=== PATIENT | male | born 1950 | race Caucasian/White ===

== ENCOUNTER 2020-09-23 11:55 | Inpatient (IN) | payer MEDICARE, MEDICAID ==
[~2020-09-23] VITALS: Ht 182.9 cm; Wt 76.2 kg
[2020-09-23 12:21] VITALS: BP 148/93
--- NOTE | 2020-09-23 12:21 | NUR ---
ED Nurse Note: Patient from [facility] and brought in by [facility] due to generalized weakness and for PT evaluation. Patient denies any pain upon ED arrival. No apparent respiratory distress. Patient is AAO x4, follows commands.
--- NOTE | 2020-09-23 12:35 | Emergency Room Report ---
History of Present Illness General Chief Complaint: Generalized Weakness Source: Patient Present Illness HPI Disclaimer: Please note that this report is being documented using [employer] technology. This can lead to erroneous entry secondary to incorrect interpretation by the dictating instrument. HPI: 69-year-old male with a history of myasthenia gravis, Oscar Gomez syndrome presents from his facility for evaluation of weakness. Patient had been previously receiving IVIG and multiple medications and additionally transition to hospice care. There are some improvement in his strength is now able to lift his extremities but requires further physical therapy. Will require placement into a facility that can better suit his needs at rehab. Denies pain or discomfort. Denies chest pain, shortness of breath, cough, congestion, nausea, vomiting, diarrhea. Tested negative for COVID-19 last week. PMH: Oscar Gomez syndrome, myasthenia gravis PSH: Knee replacement Allergies: Sulfa Social Hx: Denied Allergies: Coded Allergies: SULFA (SULFONAMIDE ANTIBIOTICS) (Verified Allergy, Unknown, 09/23/20) COVID-19 Screening Contact w/high risk pt: No Experienced COVID-19 symptoms?: No COVID-19 Testing performed SOFTWARE PRODUCT SPECIALIST: No Review of Systems All Other Systems: negative except mentioned in HPI Physical Exam Vital Signs Date Time Temp Pulse Resp B/P (MAP) Pulse Ox O2 Delivery O2 Flow Rate FiO2 09/23/20 11:57 98.4 67 19 148/99 (115) 95 Room Air General: Awake and alert, no acute distress HEENT: NC/AT. EOMI. Cardiovascular: RRR. S1 and S2 normal. No murmur appreciated Resp: Normal work of breathing. No cough, wheezing or crackles appreciated Abdomen: Abdomen is soft, nondistended. Nontender Skin: Intact. No abrasions, laceration or rash over the exposed skin MSK: Normal tone and bulk. Moving all extremities. No obvious deformity. Strength is 3/5 at the hips and the lower extremity. Neuro: Awake and alert. Mentating appropriately. Intention tremor in upper and lower extremities. Medical Decision Making Diagnostic Impression: Primary Impression: Episode of generalized weakness ER Course 69-year-old male history of myasthenia gravis and Oscar Gomez syndrome presents for generalized weakness. Patient require placement and rehabilitation facility. EKG is nonischemic. Labs unremarkable. He will be admitted to his PMD, Dr. Quach for further care. Laboratory Tests Test 09/23/20 12:15 09/23/20 13:05 White Blood Count 7.0 K/UL (4.8-10.8) Red Blood Count 4.66 M/UL (4.70-6.10) L Hemoglobin 13.5 G/DL (14.2-18.0) L Hematocrit 41.9 % (42.0-52.0) L Mean Corpuscular Volume 90 FL (80-99) Mean Corpuscular Hemoglobin 29.0 PG (27.0-31.0) Mean Corpuscular Hemoglobin Concent 32.3 G/DL (32.0-36.0) Red Cell Distribution Width 14.7 % (11.6-14.8) Platelet Count 236 K/UL (150-450) Mean Platelet Volume 8.1 FL (6.5-10.1) Neutrophils (%) (Auto) 69.7 % (45.0-75.0) Lymphocytes (%) (Auto) 15.6 % (20.0-45.0) L Monocytes (%) (Auto) 8.9 % (1.0-10.0) Eosinophils (%) (Auto) 4.6 % (0.0-3.0) H Basophils (%) (Auto) 1.2 % (0.0-2.0) Sodium Level 139 MMOL/L (136-145) Potassium Level 4.3 MMOL/L (3.5-5.1) Chloride Level 106 MMOL/L (98-107) Carbon Dioxide Level 29 MMOL/L (21-32) Anion Gap 4 mmol/L (5-15) L Blood Urea Nitrogen 25 mg/dL (7-18) H Creatinine 1.1 MG/DL (0.55-1.30) Estimated Glomerular Filtration Rate > 60 mL/min (>60) Glucose Level 94 MG/DL (74-106) Calcium Level 9.7 MG/DL (8.5-10.1) Phosphorus Level 2.6 MG/DL (2.5-4.9) Magnesium Level 2.3 MG/DL (1.8-2.4) Total Bilirubin 0.2 MG/DL (0.2-1.0) Aspartate Amino Transferase (AST) 18 U/L (15-37) Alanine Aminotransferase (ALT) 22 U/L (12-78) Alkaline Phosphatase 65 U/L (46-116) Total Creatine Kinase 35 U/L (26-308) Troponin I 0.007 ng/mL (0.000-0.056) Pro-B-Type Natriuretic Peptide 21 pg/mL (0-125) Total Protein 6.6 G/DL (6.4-8.2) Albumin 3.3 G/DL (3.4-5.0) L Globulin 3.3 g/dL Albumin/Globulin Ratio 1.0 (1.0-2.7) Urine Color Yellow Urine Appearance Clear Urine pH 7 (4.5-8.0) Urine Specific [place] 1.010 (1.005-1.035) Urine Protein Negative (NEGATIVE) Urine Glucose (UA) Negative (NEGATIVE) Urine Ketones Negative (NEGATIVE) Urine Blood Negative (NEGATIVE) Urine Nitrite Negative (NEGATIVE) Urine Bilirubin Negative (NEGATIVE) Urine Urobilinogen Normal MG/DL (0.0-1.0) Urine Leukocyte Esterase Negative (NEGATIVE) Urine Opiates Screen Negative (NEGATIVE) Urine Barbiturates Screen Positive (NEGATIVE) H Phencyclidine (PCP) Screen Negative (NEGATIVE) Urine Amphetamines Screen Negative (NEGATIVE) Urine Benzodiazepines Screen Negative (NEGATIVE) Urine Cocaine Screen Negative (NEGATIVE) Urine Marijuana (THC) Screen Negative (NEGATIVE) EKG Diagnostic Results Troponin ordered: Yes When was troponin ordered?: Sep 23, 2020 EKG Time: 12:26 Rate: normal Rhythm: NSR ST Segments: no acute changes Other Impression Sinus rhythm, normal axis, normal intervals, QTC 401 ms Rhythm Strip Diag. Results Rhythm Strip Time: 12:26 EP Interpretation: yes Rate: 60s Rhythm: NSR, no PVC's, no ectopy Chest X-Ray Diagnostic Results Chest X-Ray Diagnostic Results : Chest X-Ray Ordered: Yes # of Views/Limited/Complete: 1 View Indication: Other - Weakness EP Interpretation: Yes Interpretation: no consolidation, no effusion, no pneumothorax, no acute cardiopulmonary disease Impression: No acute disease Electronically Signed by: Electronically signed by Dr. Marlo Kirby MD Last Vital Signs Date Time Temp Pulse Resp B/P (MAP) Pulse Ox O2 Delivery O2 Flow Rate FiO2 09/23/20 12:21 67 19 Room Air 09/23/20 11:57 98.4 148/99 (115) 95 Disposition: ADMITTED INPATIENT Condition: Stable Marlo Kirby MD Sep 23, 2020 12:35
--- NOTE | 2020-09-23 12:35 | NUR ---
ED Nurse Note: Patient was provided with warm blankets for comfort.
[2020-09-23 12:58] LABS: ANION GAP 4 mmol/L (5-15); BLOOD UREA NITROGEN 25 mg/dL (7-18); CALCIUM 9.7 MG/DL (8.5-10.1); CARBON DIOXIDE 29 MMOL/L (21-32); CHLORIDE 106 MMOL/L (98-107); CREATININE 1.1 MG/DL (0.55-1.30); POTASSIUM 4.3 MMOL/L (3.5-5.1); SODIUM 139 MMOL/L (136-145)
--- NOTE | 2020-09-23 13:00 | NUR ---
ED Nurse Note: Patient remains calm and cooperative. Speaks in full sentences with no respiratory distress. Collected urine then sent.
[2020-09-23 13:09] LABS: ALANINE AMINOTRANSFERASE 22 U/L (12-78); ALBUMIN 3.3 G/DL (3.4-5.0); ALKALINE PHOSPHATASE 65 U/L (46-116); ASPARTATE AMINO TRANSFERASE 18 U/L (15-37); BILIRUBIN,TOTAL 0.2 MG/DL (0.2-1.0); CREATINE KINASE 35 U/L (26-308); PHOSPHORUS 2.6 MG/DL (2.5-4.9)
[2020-09-23 13:16] LABS: BASOPHILS % (AUTO) 1.2 % (0.0-2.0); EOSINOPHILS % (AUTO) 4.6 % (0.0-3.0); HEMATOCRIT 41.9 % (42.0-52.0); HEMOGLOBIN 13.5 G/DL (14.2-18.0); LYMPHOCYTES % (AUTO) 15.6 % (20.0-45.0); MEAN CORPUSCULAR VOLUME 90 FL (80-99); MONOCYTES % (AUTO) 8.9 % (1.0-10.0); NEUTROPHILS % (AUTO) 69.7 % (45.0-75.0); PLATELET COUNT 236 K/UL (150-450); RED BLOOD COUNT 4.66 M/UL (4.70-6.10); RED CELL DISTRIBUTION WIDTH 14.7 % (11.6-14.8)
[2020-09-23 13:50] LABS: APPEARANCE,URINE CLEAR; BILIRUBIN, URINE NEGATIVE (NEGATIVE); COLOR,URINE YELLOW; GLUCOSE, URINE (UA) NEGATIVE (NEGATIVE); KETONES,URINE NEGATIVE (NEGATIVE); LEUKOCYTE ESTERASE ,URINE NEGATIVE (NEGATIVE); NITRITE,URINE NEGATIVE (NEGATIVE); PH,URINE 7 (4.5-8.0); PROTEIN,URINE NEGATIVE (NEGATIVE); UROBILINOGEN,URINE NORMAL MG/DL (0.0-1.0)
[2020-09-23 14:23] VITALS: BP 141/92
--- NOTE | 2020-09-23 14:30 | NUR ---
ED Nurse Note: Report given to RN of Med surg unit.
[2020-09-23] MEDS ORDERED: MILK OF MA400 MG/51 ORAL (14:31)
[2020-09-23] MEDS ORDERED: IBUPROFEN600 M1 ORAL (14:31)
[2020-09-23] MEDS ORDERED: HYDRALAZINE HCL50 MG ORAL (14:31)
[2020-09-23] MEDS ORDERED: IPRATROPIU0.2 MG/1 M HHN (14:31)
[2020-09-23] MEDS ORDERED: MYSOLINE250 M1 PO (14:39)
[2020-09-23] MEDS ORDERED: MULTIVITAMINS1 EA13 ORAL (14:39)
[2020-09-23] MEDS ORDERED: TRAZODONE HCL150 MG ORAL (14:39)
[2020-09-23] MEDS ORDERED: HYDRALAZINE HCL10 MG ORAL (14:39)
[2020-09-23] MEDS ORDERED: HYDRALAZINE HCL25 M1 ORAL (14:39)
[2020-09-23] MEDS ORDERED: PYRIDOSTIGMINE180 MG PO (14:39)
[2020-09-23] MEDS ORDERED: OYSTER SHELL 51 EAC2 PO (14:39)
[2020-09-23] MEDS ORDERED: VALPROIC ACID250 MG PO (14:39)
[2020-09-23] MEDS ORDERED: MYCOPHENOLATE500 MG PO (14:39)
[2020-09-23] MEDS ORDERED: CLONAZEPAM0.5 M1 PO (14:39)
[2020-09-23] MEDS ORDERED: GABAPENTIN600 MG ORAL (14:39)
--- NOTE | 2020-09-23 14:45 | NUR ---
NURSE NOTES: Patient arrived on unit. Stable. Denies pain or SOB. Patient oriented to room, call light, and unit. Patient instructed to use call light for assistance, verbalized understanding. Skin is c/d/i. Weakness noted in all 4 extremities, patient verbalized that he is unable to walk or stand. All safety measures provided. Patient is in bed in locked and lowest position with call light within reach. All needs met at this time. Will continue to monitor.
[2020-09-23] MEDS ORDERED: PYRIDOSTIGMINE60 MG ORAL (15:09)
[2020-09-23] MEDS ORDERED: DULCOLAX10 MG RC (15:11)
[2020-09-23] MEDS ORDERED: VITAMIN C500 M1 ORAL (15:24)
[2020-09-23] MEDS ORDERED: MORPHINE S10 MG/5 ML ORAL ×2 (15:24)
[2020-09-23] MEDS ORDERED: ACETAMINOPHEN325 M1 ORAL (15:24)
[2020-09-23] MEDS ORDERED: CELEXA10 MG ORAL (15:24)
[2020-09-23] MEDS ORDERED: FLEET ENEMA133 M1 RC (15:24)
[2020-09-23] MEDS ORDERED: SENNA8.6 M2 PO (15:24)
[2020-09-23] MEDS ORDERED: HydrALAZINE 10mg Tab ORAL PRN (15:30)
[2020-09-23] MEDS ORDERED: Ipratropium 0.02% Inh Soln 2.5ml UD HHN PRN (15:30)
[2020-09-23] MEDS ORDERED: HydrALAZINE 25mg tab ORAL PRN (15:30)
[2020-09-23] MEDS ORDERED: Milk of Magnesia 30ml Ud ORAL PRN (15:30)
[2020-09-23] MEDS ORDERED: Fleet's Enema 133ml RECTAL PRN (15:30)
[2020-09-23] MEDS ORDERED: Morphine Sulfate 10mg/5ml Oral Soln ud ORAL PRN ×2 (15:30)
[2020-09-23 16:00] VITALS: BP 140/89
--- NOTE | 2020-09-23 18:09 | History and Physical ---
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 .He presents to the Hospital with increasing muscle stiffness, gait difficulty and admission is required for medical optimization. Allergies: Coded Allergies: SULFA (SULFONAMIDE ANTIBIOTICS) (Verified Allergy, Unknown, 09/23/20) COVID-19 Screening Contact w/high risk pt: No Experienced COVID-19 symptoms?: No Medication History Scheduled Ascorbic Acid* (Vitamin C*), 500 MG ORAL DAILY, (Reported) Calcium Carbonate/Vitamin D3 (Oyster Shell 500-Vit D3 200 Pk), 1 EACH PO TID, (Reported) Citalopram Hydrobromide (Celexa), 10 MG ORAL DAILY, (Reported) Clonazepam (Clonazepam), 0.5 MG PO BID, (Reported) Gabapentin* (Gabapentin*), 600 MG ORAL BID, (Reported) Hydralazine Hcl* (Hydralazine Hcl*), 50 MG ORAL EVERY 8 HOURS, (Reported) Multivitamin with Minerals (Multivitamins with Minerals), 1 TAB ORAL DAILY, (Reported) Mycophenolate Mofetil (Mycophenolate Mofetil), 500 MG PO BID, (Reported) Primidone (Mysoline), 250 MG PO DAILY, (Reported) Pyridostigmine Ralph* (Mestinon*), 60 MG ORAL FOUR TIMES A DAY, (Reported) Sennosides (Senna), 8.6 MG PO Q12HR, (Reported) Trazodone* (Trazodone*), 100 MG ORAL BEDTIME, (Reported) Valproic Acid (Valproic Acid), 500 MG PO DAILY, (Reported) Scheduled PRN Acetaminophen* (Acetaminophen 325MG Tablet*), 650 MG ORAL Q4H PRN for Mild Pain (Pain Scale 1-3), (Reported) Acetaminophen* (Acetaminophen 325MG Tablet*), 650 MG ORAL Q4H PRN for TEMP >101, (Reported) Bisacodyl (Dulcolax), 10 MG RC DAILY PRN for Constipation, (Reported) Hydralazine Hcl* (Hydralazine Hcl*), 10 MG ORAL EVERY 6 HOURS PRN for SBP >150, (Reported) Hydralazine Hcl* (Hydralazine Hcl*), 25 MG ORAL Q6HR PRN for SBP >160, (Reported) Ibuprofen* (Motrin*), 800 MG ORAL Q8H PRN for Moderate Pain (Pain Scale 4-6), (Reported) Ipratropium Ralph 0.5MG/2.5ML (Ipratropium Ralph 0.5MG/2.5ML), 0.5 MG HHN Q4HR PRN for Shortness of Breath, (Reported) Magnesium Hydroxide* (Milk Of Magnesia*), 30 ML ORAL DAILY PRN for Constipation, (Reported) Morphine 10mg/5ml Oral Soln* (Morphine 10mg/5ml Oral Soln*), 5 MG ORAL EVERY 2 HOURS PRN for Severe Pain (Pain Scale 7-10), (Reported) Morphine 10mg/5ml Oral Soln* (Morphine 10mg/5ml Oral Soln*), 5 MG ORAL Q4HR PRN for Moderate Pain (Pain Scale 4-6), (Reported) Na Phos,M-B/Na Phos,Di-Ba (Fleet Enema), 133 ML RC DAILY PRN for Constipation, (Reported) Patient History Healthcare decision maker Resuscitation status Advanced Directive on File Review of Systems Constitutional: Reports: see HPI Musculoskeletal: Reports: muscle pain, muscle stiffness Psychiatric: Reports: anxiety, depressed feelings, emotional problems Neurological: Denies: focal weakness Physical Exam General Appearance: WD/WN Lines, tubes and drains: peripheral Neck: non-tender Respiratory/Chest: lungs clear Cardiovascular/Chest: normal rate Abdomen: non tender Extremities: normal range of motion Neurologic: climatologist II-XII grossly normal Last 24 Hour Vital Signs Date Time Temp Pulse Resp B/P (MAP) Pulse Ox O2 Delivery O2 Flow Rate FiO2 09/23/20 14:41 98.2 79 20 141/92 97 Room Air 09/23/20 14:23 98.2 79 20 141/92 97 Room Air 09/23/20 12:21 98.4 87 16 148/93 100 Room Air 09/23/20 12:21 67 19 Room Air 09/23/20 11:57 98.4 67 19 148/99 (115) 95 Room Air Laboratory Tests Test 09/23/20 12:15 09/23/20 13:05 White Blood Count 7.0 K/UL (4.8-10.8) Red Blood Count 4.66 M/UL (4.70-6.10) L Hemoglobin 13.5 G/DL (14.2-18.0) L Hematocrit 41.9 % (42.0-52.0) L Mean Corpuscular Volume 90 FL (80-99) Mean Corpuscular Hemoglobin 29.0 PG (27.0-31.0) Mean Corpuscular Hemoglobin Concent 32.3 G/DL (32.0-36.0) Red Cell Distribution Width 14.7 % (11.6-14.8) Platelet Count 236 K/UL (150-450) Mean Platelet Volume 8.1 FL (6.5-10.1) Neutrophils (%) (Auto) 69.7 % (45.0-75.0) Lymphocytes (%) (Auto) 15.6 % (20.0-45.0) L Monocytes (%) (Auto) 8.9 % (1.0-10.0) Eosinophils (%) (Auto) 4.6 % (0.0-3.0) H Basophils (%) (Auto) 1.2 % (0.0-2.0) Sodium Level 139 MMOL/L (136-145) Potassium Level 4.3 MMOL/L (3.5-5.1) Chloride Level 106 MMOL/L (98-107) Carbon Dioxide Level 29 MMOL/L (21-32) Anion Gap 4 mmol/L (5-15) L Blood Urea Nitrogen 25 mg/dL (7-18) H Creatinine 1.1 MG/DL (0.55-1.30) Estimat Glomerular Filtration Rate > 60 mL/min (>60) Glucose Level 94 MG/DL (74-106) Calcium Level 9.7 MG/DL (8.5-10.1) Phosphorus Level 2.6 MG/DL (2.5-4.9) Magnesium Level 2.3 MG/DL (1.8-2.4) Total Bilirubin 0.2 MG/DL (0.2-1.0) Aspartate Amino Transf (AST/SGOT) 18 U/L (15-37) Alanine Aminotransferase (ALT/SGPT) 22 U/L (12-78) Alkaline Phosphatase 65 U/L (46-116) Total Creatine Kinase 35 U/L (26-308) Troponin I 0.007 ng/mL (0.000-0.056) Pro-B-Type Natriuretic Peptide 21 pg/mL (0-125) Total Protein 6.6 G/DL (6.4-8.2) Albumin 3.3 G/DL (3.4-5.0) L Globulin 3.3 g/dL Albumin/Globulin Ratio 1.0 (1.0-2.7) Urine Color Yellow Urine Appearance Clear Urine pH 7 (4.5-8.0) Urine Specific [place] 1.010 (1.005-1.035) Urine Protein Negative (NEGATIVE) Urine Glucose (UA) Negative (NEGATIVE) Urine Ketones Negative (NEGATIVE) Urine Blood Negative (NEGATIVE) Urine Nitrite Negative (NEGATIVE) Urine Bilirubin Negative (NEGATIVE) Urine Urobilinogen Normal MG/DL (0.0-1.0) Urine Leukocyte Esterase Negative (NEGATIVE) Urine Opiates Screen Negative (NEGATIVE) Urine Barbiturates Screen Positive (NEGATIVE) H Phencyclidine (PCP) Screen Negative (NEGATIVE) Urine Amphetamines Screen Negative (NEGATIVE) Urine Benzodiazepines Screen Negative (NEGATIVE) Urine Cocaine Screen Negative (NEGATIVE) Urine Marijuana (THC) Screen Negative (NEGATIVE) Microbiology Date/Time Source Procedure Growth Status 09/23/20 13:00 Rectum Received Height (Feet): 6 Height (Inches): 0.00 Weight (Pounds): 168 Medications Current Medications Medications (Trade) Dose Ordered Sig/Brad Route PRN Reason Start Time Stop Time Status Last Admin Dose Admin Acetaminophen (Tylenol) 650 mg Q4H PRN ORAL Mild Pain (Pain Scale 1-3) 09/23/20 15:30 10/23/20 15:29 Acetaminophen (Tylenol) 650 mg Q4H PRN ORAL TEMP >101 09/23/20 15:30 10/23/20 15:29 Ascorbic Acid (Vitamin C) 500 mg DAILY ORAL 09/24/20 09:00 10/24/20 08:59 Bisacodyl (Dulcolax) 10 mg DAILYPRN PRN RECTAL Constipation 09/23/20 15:30 12/22/20 15:29 Citalopram Hydrobromide (CeleXA) 10 mg DAILY ORAL 09/24/20 09:00 10/24/20 08:59 Clonazepam (KlonoPIN) 0.5 mg BID ORAL 09/23/20 18:00 09/30/20 17:59 Dextrose (Dextrose 50%) 25 ml Q30M PRN IV Hypoglycemia 09/23/20 15:45 12/22/20 15:44 Dextrose (Dextrose 50%) 50 ml Q30M PRN IV Hypoglycemia 09/23/20 15:45 12/22/20 15:44 Gabapentin (Neurontin) 600 mg BID ORAL 09/23/20 18:00 10/23/20 17:59 Hydralazine HCl (Apresoline) 10 mg Q6H PRN ORAL SBP >150 09/23/20 15:30 12/22/20 15:29 Hydralazine HCl (Apresoline) 25 mg Q6H PRN ORAL SBP >160 09/23/20 15:30 12/22/20 15:29 Hydralazine HCl (Apresoline) 50 mg EVERY 8 HOURS ORAL 09/23/20 22:00 12/22/20 21:59 Ibuprofen (Motrin) 800 mg Q8H PRN ORAL Moderate Pain (Pain Scale 4-6) 09/23/20 15:30 10/23/20 15:29 Ipratropium Ralph (Atrovent) 500 mcg Q4H PRN HHN Shortness of Breath 09/23/20 15:30 09/28/20 15:29 Magnesium Hydroxide (Mom) 30 ml DAILYPRN PRN ORAL Constipation 09/23/20 15:30 10/23/20 15:29 Morphine Sulfate (Morphine 10mg/ 5ml Oral Soln) 5 mg Q2H PRN ORAL Severe Pain (Pain Scale 7-10) 09/23/20 15:30 09/30/20 15:29 Morphine Sulfate (Morphine 10mg/ 5ml Oral Soln) 5 mg Q4H PRN ORAL Moderate Pain (Pain Scale 4-6) 09/23/20 15:30 09/30/20 15:29 Multivitamins Therapeutic (Therapeutic Multivitamin) 1 ea DAILY ORAL 09/24/20 09:00 10/24/20 08:59 Mycophenolate Mofetil (Cellcept) 500 mg BID ORAL 09/23/20 18:00 12/22/20 17:59 Primidone (Mysoline) 250 mg DAILY ORAL 09/24/20 09:00 10/24/20 08:59 Pyridostigmine Ralph (Mestinon) 60 mg FOUR TIMES A DAY ORAL 09/23/20 18:00 12/22/20 17:59 Sennosides (Senokot) 8.6 mg Q12HR ORAL 09/23/20 21:00 10/23/20 20:59 Sodium Chloride 1,000 ml @ 75 mls/hr Q24H IV 09/23/20 18:00 10/23/20 17:59 Sodium Phosphate (Fleet's Sodium Phosl Enema) 133 ml DAILYPRN PRN RECTAL Constipation 09/23/20 15:30 10/23/20 15:29 Trazodone HCl (Desyrel) 100 mg BEDTIME ORAL 09/23/20 21:00 10/23/20 20:59 Valproic Acid (Depakene) 500 mg DAILY ORAL 09/24/20 09:00 10/24/20 08:59 Assessment/Plan Status: stable Assessment/Plan: 69 y/o male with increasing weakness and muscle stiffness admitted to the hospital for medical optimization and therapy. # History of Myasthenia Gravis and Lamber Eaton Syndrome Continue chronic Benzodiazepines and cellcep therapy PT OT ST evaluation for baseline and potential for recovery Patient is hoping to be able to return to SNF and engage in therapies to improve his baseline Suportive care # History of T2 DM Monitor and HbA1c will be ordered. He has not been using insulin recently.. # History of Asthma Monitor and PRN HHN as needed. # History of Major Depression Monitor and will discuss the benefit of further therapy. He used to be on SSRI in the past. DVT ppx [facility] GI PPI FULL CODE Aaron Quach MD Sep 23, 2020 18:09
[2020-09-23] MEDS: Pyridostigmine 60mg tab ORAL SCH ×2 (18:22→21:25)
[2020-09-23] MEDS: clonazePAM 0.5mg tab ORAL SCH (18:23)
[2020-09-23] MEDS: Mycophenolate 250mg cap ORAL SCH (18:23)
[2020-09-23] MEDS: Enoxaparin 40mg Inj SUBQ SCH (18:26)
--- NOTE | 2020-09-23 19:30 | NUR ---
NURSE HAND-OFF: Important Events on Shift: admission Patient Status: stable Diet: regular Pending Orders: n/a Pending Results/Labs:n/a Pending MD notification:n/a Latest Vital Signs: Temperature 97.4 , Pulse 66 , B/P 140 /89 , Respiratory Rate 20 , O2 SAT 93 , Room Air, O2 Flow Rate . Vital Sign Comment: n/a Latest Jackson Fall Score: 20 Fall Risk: Low Risk Safety Measures: Call light Within Reach, Bed Alarm , Side Rails Side Rails x2, Bed position Low and Locked. Fall Precautions: Patient Fall Education Report given to Edgardo CASTRO.
--- NOTE | 2020-09-23 19:30 | NUR ---
NURSE NOTES: received pt and report from MATTHEW Sandoval. pt alert and oriented x 4 with no acute s/s of distress and no co pain at the moment. IV site clean dry and intact and running fluids as ordered. plan of care discussed.
[2020-09-23 20:00] VITALS: BP 158/99
[2020-09-23] MEDS: TraZODone 100mg tab ORAL SCH (21:26)
[2020-09-23] MEDS: HydrALAZINE 50mg tab ORAL SCH (21:26)
[2020-09-23] MEDS: Sennosides 8.6mg tab ORAL SCH (21:26)
--- NOTE | 2020-09-23 23:00 | NUR ---
NURSE NOTES: pt had large soft bowel movement that was light brown in color. pt able to move himself left and right in order to aid in cleaning. Pt incontinent of urine also, condom cath installed. Pt with no co pain at the moment and with no s/s of acute distress.
[2020-09-24] VITALS: BP 132/78
--- NOTE | 2020-09-24 00:20 | NUR ---
NURSE NOTES: pts vital signs stable, no co pain, no acute distress. condom cath fell off, pad soaked. pt cleaned and new condom cath installed.
[2020-09-24 04:00] VITALS: BP 141/89
--- NOTE | 2020-09-24 04:57 | NUR ---
NURSE NOTES: pt sleeping upon room entry. pt vital signs stable, he has no co pain, and has no s/s of acute distress. condom cath still in place. bedding and chucks clean and dry.
[2020-09-24] MEDS: HydrALAZINE 50mg tab ORAL SCH ×3 (06:09→21:17)
[2020-09-24 06:42] LABS: BASOPHILS % (AUTO) 1.2 % (0.0-2.0); EOSINOPHILS % (AUTO) 6.6 % (0.0-3.0); HEMATOCRIT 41.8 % (42.0-52.0); HEMOGLOBIN 13.4 G/DL (14.2-18.0); LYMPHOCYTES % (AUTO) 21.7 % (20.0-45.0); MEAN CORPUSCULAR VOLUME 92 FL (80-99); MONOCYTES % (AUTO) 7.3 % (1.0-10.0); NEUTROPHILS % (AUTO) 63.2 % (45.0-75.0); PLATELET COUNT 214 K/UL (150-450); RED BLOOD COUNT 4.52 M/UL (4.70-6.10); RED CELL DISTRIBUTION WIDTH 14.4 % (11.6-14.8); WHITE BLOOD COUNT 5.4 K/UL (4.8-10.8)
[2020-09-24 07:35] LABS: ANION GAP 4 mmol/L (5-15); BLOOD UREA NITROGEN 20 mg/dL (7-18); CALCIUM 9.4 MG/DL (8.5-10.1); CARBON DIOXIDE 28 MMOL/L (21-32); CHLORIDE 106 MMOL/L (98-107); CHOLESTEROL 249 MG/DL (< 200); CREATININE 1.1 MG/DL (0.55-1.30); HDL CHOLESTEROL 66 MG/DL (40-60); POTASSIUM 4.2 MMOL/L (3.5-5.1); SODIUM 138 MMOL/L (136-145); TRIGLYCERIDES 72 MG/DL (30-150)
--- NOTE | 2020-09-24 07:38 | NUR ---
NURSE HAND-OFF: Important Events on Shift:bowel movement, incontinence management Patient Status: stable Diet: regular Pending Orders: NA Pending Results/Labs:NA Pending MD notification:NA Latest Vital Signs: Temperature 97.4 , Pulse 62 , B/P 141 /89 , Respiratory Rate 15 , O2 SAT 95 , Room Air, O2 Flow Rate . Vital Sign Comment: stable through the shift Latest Jackson Fall Score: 20 Fall Risk: Low Risk Safety Measures: Call light Within Reach, Bed Alarm Zone 1, Side Rails Side Rails x2, Bed position Low and Locked. Fall Precautions: Patient Fall Education Report given to Yamilet Bernal RN.
--- NOTE | 2020-09-24 07:54 | NUR ---
NURSE NOTES: Received report from MATTHEW Reynoso. Rounding done with outgoing nurse. Pt a/o x 4 , in bed. NO SOB noted. Denies any pain at this time. Prepared meal for him. Rt AC IV is in placed. 1/2NS is running @75mlhr. condom catheter is in placed. Bed in lowest position, call light within reach. Will continue to monitor.
[2020-09-24 08:00] VITALS: BP 143/98
[2020-09-24] MEDS: clonazePAM 0.5mg tab ORAL SCH ×2 (08:58→17:37)
[2020-09-24] MEDS: Citalopram Hydrobromide 10mg Tab ORAL SCH (08:58)
[2020-09-24] MEDS: Sennosides 8.6mg tab ORAL SCH ×2 (08:58→21:17)
[2020-09-24] MEDS: Multivitamin w/Minerals tab ORAL SCH (08:58)
[2020-09-24] MEDS: Ascorbic Acid 500mg tab ORAL SCH (08:58)
[2020-09-24] MEDS: Pyridostigmine 60mg tab ORAL SCH ×4 (08:59→21:18)
[2020-09-24] MEDS: Mycophenolate 250mg cap ORAL SCH ×2 (08:59→17:38)
[2020-09-24] MEDS: Enoxaparin 40mg Inj SUBQ SCH (09:01)
[2020-09-24 12:00] VITALS: BP 138/91
--- NOTE | 2020-09-24 14:43 | General Progress Note ---
Subjective Date patient seen: Sep 24, 2020 ROS Limited/Unobtainable: No Allergies: Coded Allergies: SULFA (SULFONAMIDE ANTIBIOTICS) (Verified Allergy, Unknown, 09/23/20) All Systems: reviewed and negative except above Subjective Patient had an ok night and slept. His muscle spasm are stable with benzodiazepine. Objective Last 24 Hour Vital Signs Date Time Temp Pulse Resp B/P (MAP) Pulse Ox O2 Delivery O2 Flow Rate FiO2 09/24/20 13:54 138/91 09/24/20 12:00 98.0 65 20 138/91 (107) 93 09/24/20 09:00 Room Air 09/24/20 08:00 97.5 69 15 143/98 (113) 96 09/24/20 06:09 141/89 09/24/20 04:00 97.4 62 15 141/89 (106) 95 09/24/20 00:00 97.7 61 19 132/78 (96) 94 09/23/20 21:26 158/99 09/23/20 21:00 Room Air 09/23/20 20:00 97.9 67 18 158/99 (118) 94 09/23/20 16:00 97.4 66 20 140/89 (106) 93 Intake and Output 09/23/20 09/24/20 19:00 07:00 Intake Total 500 ml 1065 ml Output Total 150 ml 600 ml Balance 350 ml 465 ml Intake Oral 240 ml IV Total 500 ml 825 ml Output Urine Total 150 ml 600 ml Laboratory Tests 09/24/20 05:25: White Blood Count 5.4, Red Blood Count 4.52L, Hemoglobin 13.4L, Hematocrit 41.8L , Mean Corpuscular Volume 92, Mean Corpuscular Hemoglobin 29.6, Mean Corpuscular Hemoglobin Concent 32.0, Red Cell Distribution Width 14.4, Platelet Count 214, Mean Platelet Volume 7.7, Neutrophils (%) (Auto) 63.2, Lymphocytes (%) (Auto) 21.7, Monocytes (%) (Auto) 7.3, Eosinophils (%) (Auto) 6.6H, Basophils (%) (Auto) 1.2, Sodium Level 138, Potassium Level 4.2, Chloride Level 106, Carbon Dioxide Level 28, Anion Gap 4L, Blood Urea Nitrogen 20H, Creatinine 1.1, Estimat Glomerular Filtration Rate > 60, Glucose Level 87, Calcium Level 9.4, Triglycerides Level 72, Cholesterol Level 249H, LDL Cholesterol 158H, HDL Cholesterol 66H, Cholesterol/HDL Ratio 3.8, Thyroid Stimulating Hormone (TSH) 2.367 Height (Feet): 6 Height (Inches): 0.00 Weight (Pounds): 168 General Appearance: WD/WN EENT: PERRL/EOMI Neck: non-tender Respiratory/Chest: lungs clear Abdomen: non tender Neurologic: evaluation engineer II-XII grossly normal Assessment/Plan Status: stable Assessment/Plan: 69 y/o male with increasing weakness and muscle stiffness admitted to the hospital for medical optimization and therapy. # History of Myasthenia Gravis and Lamber Eaton Syndrome Continue chronic Benzodiazepines and cellcep therapy PT OT ST evaluation for baseline and potential for recovery Patient is hoping to be able to return to SNF and engage in therapies to improve his baseline Supportive care # History of T2 DM Monitor and HbA1c will be ordered. He has not been using insulin recently.. # History of Asthma Monitor and PRN HHN as needed. # History of Major Depression Monitor and will discuss the benefit of further therapy. He used to be on SSRI in the past. DVT ppx [facility] GI PPI FULL CODE Aaron Quach MD Sep 24, 2020 14:43
--- NOTE | 2020-09-24 15:30 | NUR ---
P.T Note: P.T evaluation completed and tx initiated. Please refer to P.T evaluation for full report.
[2020-09-24] MEDS ORDERED: MORPHINE S100 MG/5 M ORAL ×2 (15:55)
[2020-09-24 16:00] VITALS: BP 131/92
--- NOTE | 2020-09-24 16:28 | Cardiology Report ---
APPROVED REPORT EKG Measurement Heart [id number] <Conclusion> Sinus rhythm with 1st degree AV block Otherwise normal ECG
--- NOTE | 2020-09-24 17:09 | NUR ---
*-*DISCHARGE PLANNING*-* PATIENT HAS BEEN ACCEPTED BACK TO: [facility] P: [phone] [facility] ROOM# 46.B
--- NOTE | 2020-09-24 17:21 | NUR ---
Speech Pathology Note (Speech and Language) Mr. Rust is a 69 year old male presents MG, Lamber Eaton Syndrome s.p IVIG admitted from [facility] facility for weakness and muscle spasm and gait difficulty. Evaluation: Mr. Hein presents with normal speech, language and voice function at this time. He denies dysphagia, odynophagia or choking on food or liquid. I discussed with Mr. Rust about speech services. We both agree that he does not need speech service at this time. I will sing off from speech service at this time. Alice Ray
--- NOTE | 2020-09-24 19:00 | NUR ---
NURSE HAND-OFF: Important Events on Shift: Patient Status: stable Diet: regular Pending Orders: n/a Pending Results/Labs:n/a Pending MD notification:n/a Latest Vital Signs: Temperature 98.1 , Pulse 76 , B/P 131 /92 , Respiratory Rate 18 , O2 SAT 95 , Room Air, O2 Flow Rate . Vital Sign Comment: stable Latest Jackson Fall Score: 20 Fall Risk: Low Risk Safety Measures: Call light Within Reach, Bed Alarm Zone 1, Side Rails Side Rails x2, Bed position Low and Locked. Fall Precautions: Patient Fall Education Report given to MATTHEW Reynoso.
--- NOTE | 2020-09-24 19:10 | Diagnostic Imaging Report ---
EXAM: XR Chest, 1 View CLINICAL HISTORY: WEAK TECHNIQUE: Frontal view of the chest. COMPARISON: No relevant prior studies available. FINDINGS: Lungs: No acute cardiopulmonary disease. Mild hyperinflation. Right base subsegmental atelectasis. Recommend evaluation to determine if this patient would meet criteria for inclusion in an annual low dose CT chest lung cancer screening protocol. Pleural space: Unremarkable. No pneumothorax. Heart: Unremarkable. No cardiomegaly. Mediastinum: Unremarkable. Bones/joints: [place] left cervicothoracic spine curvature. IMPRESSION: 1. No acute cardiopulmonary disease. 2. Mild hyperinflation. 3. Right base subsegmental atelectasis. 4. Recommend evaluation to determine if this patient would meet criteria for inclusion in an annual low dose CT chest lung cancer screening protocol.
--- NOTE | 2020-09-24 19:25 | NUR ---
NURSE NOTES: received pt and report from MATTHEW Bernal. pt alert and oriented x 4 with no acute s/s of distress and no co pain. IV site clean dry and intact and running fluids as ordered. Plan of care discussed.
[2020-09-24 20:00] VITALS: BP 130/81
[2020-09-24] MEDS: TraZODone 100mg tab ORAL SCH (21:17)
[2020-09-25] VITALS: BP 133/83
--- NOTE | 2020-09-25 00:32 | NUR ---
NURSE NOTES: pt currently asleep. vital signs stable at midnight. He is in no acute distress. no co pain.
[2020-09-25 03:58] VITALS: BP 149/96
--- NOTE | 2020-09-25 04:45 | NUR ---
NURSE NOTES: pt had large bowel movement which was hard and brown. pt able to turn on his side to allow for cleaning. gown changed as well. Pt condom cath still in place. calazime and optifoam placed on pts sacrum for prophylactic purpose although pt is able to turn himself in bed and does so multiple times a night. No skin issues upon assessment. pt vitals stable through the night. he is in no acute distress and he hasnt complained of pain.
[2020-09-25] MEDS: HydrALAZINE 50mg tab ORAL SCH ×3 (05:07→21:18)
[2020-09-25 06:09] LABS: BASOPHILS % (AUTO) 1.3 % (0.0-2.0); EOSINOPHILS % (AUTO) 6.5 % (0.0-3.0); HEMATOCRIT 42.3 % (42.0-52.0); HEMOGLOBIN 13.4 G/DL (14.2-18.0); LYMPHOCYTES % (AUTO) 15.7 % (20.0-45.0); MEAN CORPUSCULAR VOLUME 93 FL (80-99); MONOCYTES % (AUTO) 9.1 % (1.0-10.0); NEUTROPHILS % (AUTO) 67.4 % (45.0-75.0); PLATELET COUNT 224 K/UL (150-450); RED BLOOD COUNT 4.56 M/UL (4.70-6.10); RED CELL DISTRIBUTION WIDTH 14.5 % (11.6-14.8); WHITE BLOOD COUNT 5.9 K/UL (4.8-10.8)
[2020-09-25 06:17] LABS: ANION GAP 5 mmol/L (5-15); BLOOD UREA NITROGEN 19 mg/dL (7-18); CALCIUM 9.1 MG/DL (8.5-10.1); CARBON DIOXIDE 28 MMOL/L (21-32); CHLORIDE 106 MMOL/L (98-107); SODIUM 139 MMOL/L (136-145)
--- NOTE | 2020-09-25 07:37 | NUR ---
NURSE HAND-OFF: Important Events on Shift: incontinent of urine and feces, pt cleaning, condom cath placement Patient Status: stable Diet: regular Pending Orders: NA Pending Results/Labs:NA Pending MD notification:NA Latest Vital Signs: Temperature 97.8 , Pulse 71 , B/P 149 /96 , Respiratory Rate 15 , O2 SAT 95 , Room Air, O2 Flow Rate . Vital Sign Comment: stable through the shift Latest Jackson Fall Score: 35 Fall Risk: Medium Risk Safety Measures: Call light Within Reach, Bed Alarm Zone 1, Side Rails Side Rails x2, Bed position Low and Locked. Fall Precautions: Patient Fall Education Report given to MATTHEW Emmanuel.
--- NOTE | 2020-09-25 07:38 | NUR ---
NURSE NOTES: Handoff received from Edgardo RN. Patient is asleep, breathing is even and unlabored on room air, no signs of distress noted. Left AC IV intact and saline locked. Bed is low and locked, sire rails up x2, call light is within reach.
[2020-09-25] MEDS: Enoxaparin 40mg Inj SUBQ SCH (09:38)
[2020-09-25] MEDS: Citalopram Hydrobromide 10mg Tab ORAL SCH (09:41)
[2020-09-25] MEDS: Multivitamin w/Minerals tab ORAL SCH (09:41)
[2020-09-25] MEDS: clonazePAM 0.5mg tab ORAL SCH ×2 (09:41→18:09)
[2020-09-25] MEDS: Sennosides 8.6mg tab ORAL SCH ×2 (09:42→21:18)
[2020-09-25] MEDS: Mycophenolate 250mg cap ORAL SCH ×2 (09:42→18:10)
[2020-09-25] MEDS: Ascorbic Acid 500mg tab ORAL SCH (09:43)
[2020-09-25] MEDS: Pyridostigmine 60mg tab ORAL SCH ×4 (09:43→21:15)
[2020-09-25 12:00] VITALS: BP 136/87
--- NOTE | 2020-09-25 12:45 | General Progress Note ---
Subjective Date patient seen: Sep 25, 2020 Time patient seen: 12:00 ROS Limited/Unobtainable: No Allergies: Coded Allergies: SULFA (SULFONAMIDE ANTIBIOTICS) (Verified Allergy, Unknown, 09/23/20) All Systems: reviewed and negative except above Subjective Patient had a good night and slept. His muscle spasm are stable with benzodiazepine. PT and ST evaluations reviewed. Objective Last 24 Hour Vital Signs Date Time Temp Pulse Resp B/P (MAP) Pulse Ox O2 Delivery O2 Flow Rate FiO2 09/25/20 05:07 149/96 09/25/20 03:58 97.8 71 15 149/96 (113) 95 09/25/20 00:00 97.7 65 16 133/83 (100) 94 09/24/20 21:17 130/81 09/24/20 21:00 Room Air 09/24/20 20:00 98.2 71 16 130/81 (97) 95 09/24/20 16:00 98.1 76 18 131/92 (105) 95 09/24/20 13:54 138/91 Intake and Output 09/24/20 09/25/20 19:00 07:00 Intake Total 1250 ml 575 ml Output Total 1300 ml 950 ml Balance -50 ml -375 ml Intake Oral 500 ml 200 ml IV Total 750 ml 375 ml Output Urine Total 1300 ml 950 ml # Bowel Movements 1 1 Laboratory Tests 09/25/20 05:20: White Blood Count 5.9, Red Blood Count 4.56L, Hemoglobin 13.4L, Hematocrit 42.3, Mean Corpuscular Volume 93, Mean Corpuscular Hemoglobin 29.4, Mean Corpuscular Hemoglobin Concent 31.8L, Red Cell Distribution Width 14.5, Platelet Count 224, Mean Platelet Volume 8.1, Neutrophils (%) (Auto) 67.4, Lymphocytes (%) (Auto) 15.7L, Monocytes (%) (Auto) 9.1, Eosinophils (%) (Auto) 6.5H, Basophils (%) (Auto) 1.3, Sodium Level 139, Potassium Level 4.0, Chloride Level 106, Carbon Dioxide Level 28, Anion Gap 5, Blood Urea Nitrogen 19H, Creatinine 1.0, Estimat Glomerular Filtration Rate > 60, Glucose Level 94, Calcium Level 9.1 Height (Feet): 6 Height (Inches): 0.00 Weight (Pounds): 168 General Appearance: WD/WN EENT: PERRL/EOMI Neck: non-tender Cardiovascular: normal rate Respiratory/Chest: lungs clear Abdomen: non tender Edema: trace edema Neurologic: global lead II-XII grossly normal Assessment/Plan Status: stable Assessment/Plan: 69 y/o male with increasing weakness and muscle stiffness admitted to the hospital for medical optimization and therapy. 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 He has not been using insulin recently.. # History of Asthma Monitor and PRN HHN as needed. # History of Major Depression Monitor and will discuss the benefit of further therapy. He used to be on SSRI in the past. DVT ppx [facility] GI PPI FULL CODE Aaron Quach MD Sep 25, 2020 12:45
[2020-09-25 16:00] VITALS: BP 129/71
--- NOTE | 2020-09-25 19:00 | NUR ---
NURSE HAND-OFF: Important Events on Shift:[none] Patient Status: stable Diet: regular Pending Orders: Pending Results/Labs: Pending MD notification: Latest Vital Signs: Temperature 97.1 , Pulse 69 , B/P 129 /71 , Respiratory Rate 19 , O2 SAT 97 , Room Air, O2 Flow Rate . Vital Sign Comment: stable Latest Jackson Fall Score: 35 Fall Risk: Medium Risk Safety Measures: Call light Within Reach, Bed Alarm Zone 1, Side Rails Side Rails x2, Bed position Low and Locked. Fall Precautions: Patient Fall Education Report given to Sabrina CASTRO.
[2020-09-25 20:00] VITALS: BP 143/94
[2020-09-25] MEDS: TraZODone 100mg tab ORAL SCH (21:18)
[2020-09-26] VITALS: BP 131/69
--- NOTE | 2020-09-26 01:20 | NUR ---
NURSES NOTE: Received pt from MATTHEW Emmanuel. Rounds made. Pt in bed, A/OX3, denies pain. No outward s/s of distress noted. Breathing pattern is even and unlabored on RA. IV site, L FA is intact, infusing IVF without incident. Condom cath in place. Optifoam to sacral area. Pt to be turned Q2H. All due medications will be administered. Bed at lowest level. Call light within reach. Pt will continue to be monitored
[2020-09-26 04:00] VITALS: BP 113/75
[2020-09-26] MEDS: HydrALAZINE 50mg tab ORAL SCH ×2 (05:36→13:56)
--- NOTE | 2020-09-26 07:15 | NUR ---
NURSE HAND-OFF: Important Events on Shift:[NONE] Patient Status: [STABLE] Diet: [REGULAR] Pending Orders: [ NONE] Pending Results/Labs:NONE[] Pending MD notification:[NONE] Latest Vital Signs: Temperature 98.5 , Pulse 61 , B/P 113 /75 , Respiratory Rate 18 , O2 SAT 93 , Room Air, O2 Flow Rate . Vital Sign Comment: [WNL] Latest Jackson Fall Score: 35 Fall Risk: Medium Risk Safety Measures: Call light Within Reach, Bed Alarm Zone 1, Side Rails Side Rails x2, Bed position Low and Locked. Fall Precautions: Patient Fall Education Report given to [MATTHEW XAVIER].
--- NOTE | 2020-09-26 07:44 | NUR ---
NURSE NOTES: Patient is in bed asleep. Stable. Breathing is even and unlabored. No visible signs of distress noted. Patient is in bed in locked and lowest position with call light within reach. All safety measures provided. Will continue to monitor.
[2020-09-26 08:00] VITALS: BP 130/70
[2020-09-26] MEDS: Citalopram Hydrobromide 10mg Tab ORAL SCH (08:36)
[2020-09-26] MEDS: Enoxaparin 40mg Inj SUBQ SCH (08:36)
[2020-09-26] MEDS: clonazePAM 0.5mg tab ORAL SCH (08:37)
[2020-09-26] MEDS: Mycophenolate 250mg cap ORAL SCH (08:37)
[2020-09-26] MEDS: Ascorbic Acid 500mg tab ORAL SCH (08:37)
[2020-09-26] MEDS: Pyridostigmine 60mg tab ORAL SCH ×2 (08:37→13:56)
[2020-09-26] MEDS: Multivitamin w/Minerals tab ORAL SCH (08:37)
[2020-09-26] MEDS: Sennosides 8.6mg tab ORAL SCH (08:37)
--- NOTE | 2020-09-26 11:26 | Discharge Instructions ---
Discharge Instructions Discharge Instructions Follow up with: Dr. Aaron Quach Services at Discharge: physical therapy, occupational therapy Resume Normal Activity?: Yes Activity: as tolerated Special Instructions PT and OT at SNF is recommended. For Congestive Heart Failure Reminder Report to your physician any weight gain of 5 pounds or more in one week. Aaorn Quach MD Sep 26, 2020 11:26
--- NOTE | 2020-09-26 11:34 | Discharge Summary ---
Discharge Summary Hospital Course Date of Admission Sep 23, 2020 at 13:36 Date of Discharge 09/26/20 Admitting Diagnosis weakness HPI Angel Luis Rust is a 69 year old male who was admitted on Sep 23, 2020 at 13:36 for Weakness and worsening muscle spasms due to Lamber Eaton Syndrome Consultations none Procedures none Hospital Course 69 y/o male with increasing weakness and muscle stiffness admitted to the hospital for medical optimization and therapy. # History of Myasthenia Gravis and Lamber Eaton Syndrome Continue chronic Benzodiazepines and cellcept therapy Prior history of IVIG, not indicated at this time. PT OT ST evaluation for baseline was completed and skilled therapy at SNF is recommended. He will return to SNF and engage in therapies to improve his baseline today. Rapid Covid test order prior to discharge. Supportive care and continuation of his medications. # History of T2 DM He has not been using insulin recently. # History of Asthma Monitor and PRN HHN as needed. # History of Major Depression Monitor and will discuss the benefit of further therapy. He used to be on SSRI in the past. FULL CODE Discharge Medications Continued Medications: Acetaminophen* (Acetaminophen 325MG Tablet*) 325 Mg Tablet 650 MG ORAL Q4H PRN for Mild Pain (Pain Scale 1-3), TAB Acetaminophen* (Acetaminophen 325MG Tablet*) 325 Mg Tablet 650 MG ORAL Q4H PRN for TEMP >101, TAB Ascorbic Acid* (Vitamin C*) 500 Mg Tablet 500 MG ORAL DAILY for SUPPLEMENT , #30 TAB 0 Refills Bisacodyl (Dulcolax) 10 Mg Supp.rect 10 MG RC DAILY PRN for Constipation, SUPP IF MOM INEFFECTIVE Calcium Carbonate/Vitamin D3 (Oyster Shell 500-Vit D3 200 Pk) 1 Each Powd.pack 1 EACH PO TID for SUPPLEMENTAL, PACK WITH MEALS Citalopram Hydrobromide (Celexa) 10 Mg Tablet 10 MG ORAL DAILY for DEPRESSION, TAB Clonazepam (Clonazepam) 0.5 Mg Tab.rapdis 0.5 MG PO BID for ANXIETY, TAB Hydralazine Hcl* (Hydralazine Hcl*) 50 Mg Tablet 50 MG ORAL EVERY 8 HOURS for HTN, TAB HOLD FOR SBP <110 OR HR <60 Hydralazine Hcl* (Hydralazine Hcl*) 10 Mg Tablet 10 MG ORAL EVERY 6 HOURS PRN for SBP >150, TAB Hydralazine Hcl* (Hydralazine Hcl*) 25 Mg Tablet 25 MG ORAL Q6HR PRN for SBP >160, TAB 0 Refills Ibuprofen* (Motrin*) 600 Mg Tablet 800 MG ORAL Q8H PRN for Moderate Pain (Pain Scale 4-6), #30 TAB 0 Refills Ipratropium [place] 0.5MG/2.5ML (Ipratropium [place] 0.5MG/2.5ML) 0.2 Mg/1 Ml Solution 0.5 MG HHN Q4HR PRN for Shortness of Breath, #28 EA Magnesium Hydroxide* (Milk Of Magnesia*) 400 Mg/5 Ml Oral.susp 30 ML ORAL DAILY PRN for Constipation, ML Morphine Sulfate (Morphine Sulfate) 100 Mg/5 Ml Solution 0.25 ML ORAL EVERY 4 HOURS PRN for Moderate Pain (Pain Scale 4-6) Morphine Sulfate (Morphine Sulfate) 100 Mg/5 Ml Solution 0.25 ML ORAL EVERY 2 HOURS PRN for Severe Pain (Pain Scale 7-10) Multivitamin with Minerals (Multivitamins with Minerals) 1 Each Tablet 1 TAB ORAL DAILY for SUPPLEMENTAL, TAB Mycophenolate Mofetil (Mycophenolate Mofetil) 500 Mg Tablet 500 MG PO BID for MYASTHENIA GRAVIS, TAB Na Phos,M-B/Na Phos,Di-Ba (Fleet Enema) 133 Ml Enema 118 ML RC DAILY PRN for Constipation, EA IF DULCOLAX INEFFECTIVE Primidone (Mysoline) 250 Mg Tablet 250 MG PO DAILY for TREMORS, TAB Pyridostigmine [place]* (Mestinon*) 60 Mg Tablet 60 MG ORAL FOUR TIMES A DAY for MYESTHENIA GRAVIS , TAB 0 Refills Sennosides (Senna) 8.6 Mg Tablet 8.6 MG PO Q12HR for BOWEL REGIMEN , TAB Trazodone* (Trazodone*) 150 Mg Tablet 100 MG ORAL BEDTIME for INABILITY TO SLEEP DUE TO MDD Valproic Acid (Valproic Acid) 250 Mg Capsule 500 MG PO DAILY for MYOCLONUS, CAP Discharge Condition Upon Discharge: stable Discharge Vital Signs Last Vital Signs Date Time Temp Pulse Resp B/P (MAP) Pulse Ox O2 Delivery O2 Flow Rate FiO2 09/26/20 09:00 Room Air 09/26/20 08:36 63 18 97 21 09/26/20 08:00 97.2 130/70 (90) Discharge Disposition Patient was discharged to [facility] Discharge Diagnoses: (1) Lambert-Eaton myasthenic syndrome (2) Asthma (3) Episode of generalized weakness Discharge Instructions Discharge Instructions Follow up with: Dr. Aaron Quach Services Upon Discharge: physical therapy, occupational therapy Activity: as tolerated Aaron Quach MD Sep 26, 2020 11:34
[2020-09-26 12:00] VITALS: BP 134/99
--- NOTE | 2020-09-26 15:31 | NUR ---
DISCHARGE PLANNING PATIENT ACCEPTED BACK TO [facility] RM [address] [phone] NURSE TO NURSE REPORT [place] ([phone]) [phone] PICKUP
[2020-09-26 16:00] VITALS: BP 139/84
--- NOTE | 2020-09-26 16:26 | NUR ---
NURSE NOTES: Report given to Oksana CASTRO at [facility]. 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
--- NOTE | 2020-09-26 18:40 | NUR ---
NURSE NOTES: Patient discharged to [facility] as ordered. Stable. Breathing is even and unlabored. No visible signs of distress noted. Patient has all belongings. Skin is c/d/i. IV removed. [facility]. Patient taken via [facility].
== END 2020-09-26 18:39 | disposition short-term general hospital (02) | DRG 57 ==
LOC: EDBD 11:55 → EMR 13:32 → 3E 13:36 → EDBEDREQ 14:21
DX: G70.00 Myasthenia gravis without (acute) exacerbation (principal); F33.9 Major depressive disorder, recurrent, unspecified; E11.9 Type 2 diabetes mellitus without complications; J45.909 Unspecified asthma, uncomplicated; Z88.2 Allergy status to sulfonamides; G00-G99 Diseases of the nervous system
CPT/HCPCS: 36415; 71045; 80048; 80053; 80061; 80307; 81003; 82550; 83735; 83880; 84100; 84443; 84484; 85025; 87081; 93005; 94664; 99285; U0002